=== PATIENT | female | born 1980 | race Caucasian/White ===

== ENCOUNTER 2017-03-03 20:50 | Emergency (ER) | payer MEDICAID ==
[~2017-03-03] VITALS: Ht 147.3 cm; Wt 56.0 kg
[2017-03-03 21:25] VITALS: BP 111/78
[2017-03-03] MEDS ORDERED: ACETAMINOPHEN 325 MG TABLET ONE (21:29)
[2017-03-03] MEDS ORDERED: ACETAMINOPHEN 325 MG TABLET PO ONE (21:30)
== END 2017-03-03 22:17 | disposition home or self-care (01) ==
LOC: ED 22:05
DX: R05 Cough (principal)
CPT/HCPCS: 71020

== ENCOUNTER 2017-04-11 23:41 | Emergency (ER) | payer MEDICAID ==
[~2017-04-11] VITALS: Ht 147.3 cm; Wt 56.4 kg
[2017-04-11 23:43] VITALS: BP 111/73
== END 2017-04-12 00:16 | disposition home or self-care (01) ==
LOC: ED 04-12 00:15
DX: K02.9 Dental caries, unspecified (principal); Z86.73 Personal history of transient ischemic attack (TIA), and cerebral infarction without residual deficits
CPT/HCPCS: 99283

== ENCOUNTER 2017-05-11 18:45 | Emergency (ER) | payer SELFPAY ==
[~2017-05-11] VITALS: Ht 152.4 cm; Wt 53.3 kg
[2017-05-11 18:50] VITALS: BP 121/77
[2017-05-11] MEDS ORDERED: ACYCLOVIR 800 MG TABLET PO ONE (20:00)
== END 2017-05-11 20:59 | disposition home or self-care (01) ==
LOC: ED 19:27
DX: B02.9 Zoster without complications (principal)
CPT/HCPCS: 99283

== ENCOUNTER 2018-07-17 00:04 | Emergency (ER) | payer OTHER ==
[~2018-07-17] VITALS: Ht 147.3 cm; Wt 51.7 kg
[2018-07-17] MEDS ORDERED: KETOROLAC 30 MG/1 ML IM ONE (01:00)
[2018-07-17] MEDS ORDERED: LIDOCAINE 1%, 10ML INFIL ONE (01:00)
[2018-07-17] MEDS ORDERED: PROMETHAZINE 25 MG/ML, 1ML IM ONE (01:00)
[2018-07-17] MEDS ORDERED: KETOROLAC 30 MG/1 ML ONE ×2 (01:01→01:03)
[2018-07-17 01:16] LABS: BASOPHILS # (AUTO) 0.03 x10^3/uL (0-0.1); BASOPHILS % (AUTO) 0 % (0-1); EOSINOPHILS # (AUTO) 0.36 x10^3/uL (0-0.4); EOSINOPHILS % (AUTO) 5 % (1-7); LYMPHOCYTES # (AUTO) 2.94 x10^3/uL (1-3.4); LYMPHOCYTES % (AUTO) 41 % (22-44); MD NO; MEAN CORPUSCULAR HEMOGLOBIN 26.9 pg (27.0-34.8); MEAN CORPUSCULAR HGB CONC 33.2 g/dL (32.4-35.8); MEAN PLATELET VOLUME 7.5 fL (7.4-10.4); MONOCYTES % (AUTO) 8 % (2-9); NEUTROPHILS # (AUTO) 3.27 x10^3/uL (1.8-6.8); NEUTROPHILS % (AUTO) 46 % (42-75); PLATELET COUNT 329 x10^3/uL (130-400); RED BLOOD COUNT 3.98 x10^6/uL (3.82-5.3); RED CELL DISTRIBUTION WIDTH 16.5 % (9.6-15.2)
[2018-07-17 01:27] LABS: ALBUMIN 3.2 g/dL (3.4-5.0); ANION GAP 9 mmol/L (5-15); CALCIUM 8.2 mg/dL (8.5-10.1); CHLORIDE 110 mmol/L (98-107); CREATININE 0.73 mg/dL (0.55-1.02)
[2018-07-17] MEDS ORDERED: LIDOCAINE-MPF 2%, 2ML ONE ×2 (02:12)
[2018-07-17 02:58] LABS: GLUCOSE, CSF 56 mg/dL (40-80); TOTAL PROTEIN,CSF 36 mg/dL (15-45)
[2018-07-17 04:14] VITALS: BP 101/58
== END 2018-07-17 04:16 | disposition home or self-care (01) ==
LOC: ED 04:10
DX: S16.1XXA Strain of muscle, fascia and tendon at neck level, initial encounter (principal); F17.200 Nicotine dependence, unspecified, uncomplicated; Z86.73 Personal history of transient ischemic attack (TIA), and cerebral infarction without residual deficits; X58.XXXA Exposure to other specified factors, initial encounter; Y93.89 Activity, other specified; Y92.89 Other specified places as the place of occurrence of the external cause; Y99.9 Unspecified external cause status
CPT/HCPCS: 36415; 62270; 70450; 80048; 80307; 82040; 82945; 84157; 84703; 85025; 87070; 87205; 87252; 89051; 96372; 99285; J1885; J2550